=== PATIENT | male | born 1960 | race African-American/Black ===

== ENCOUNTER 2019-04-27 16:28 | Inpatient (IN) ==
[2019-04-27] MEDS ORDERED: ONDANSETRON 4 MG/2 ML VIAL IV STA (16:53)
[2019-04-27] MEDS ORDERED: MORPHINE 4 MG/1 ML VIAL IV STA (16:53)
[2019-04-27] MEDS ORDERED: ceFAZolin 1,000 MG VIAL IM ONE (16:53)
[2019-04-27] MEDS ORDERED: TETANUS IMMUNE GLOBULIN 250 UNIT SYRINGE IM STA (16:53)
[2019-04-27] MEDS ORDERED: NEOMYCIN/POLYMYXIN/BACITRACIN OINT 28.4 GM TUBE TOP STA (16:59)
[2019-04-27 17:55] LABS: Basophils # 0.1 10*3/uL (0.0-0.2); Basophils % 0.3 % (0.0-0.8); Eosinophils # 0.1 10*3/uL (0.0-0.87); Eosinophils % 0.5 % (0.00-10.9); Hemoglobin 14.4 GM/DL (14.0-18.0); Immature Granulocytes % 0.6 %; Immature Granulocytes Absolute 0.12 #; Lymphocytes # 1.5 10*3/uL (1.4-4.0); Lymphocytes % 7.6 % (21.2-54.2); Mean Corpuscular HGB Conc 32.7 GM/DL (32-36); Mean Corpuscular Volume 87.6 FL (87-102); Mean Platelet Volume 11.3 FL (9.6-12.0); Monocytes % 6.6 % (1.7-12.7); Neutrophils % 84.4 % (38.7-73.9); Platelet Count 222 T/CUMM (130-400); Red Blood Count 5.02 MC/CUMM (3.8-5.5); White Blood Count 19.7 T/CUMM (4-12)
[2019-04-27 18:04] LABS: Partial Thromboplastin Time 22.2 SECS (20.8-36.0)
[2019-04-27 18:17] LABS: Alanine Aminotransferase 84 U/L (16-61); Albumin 3.1 G/DL (3.4-5.0); Alkaline Phosphatase 86 U/L (45-117); Aspartate Amino Transferase 117 U/L (0-37); Bilirubin,Total < 0.39 MG/DL (0.2-1.0); Blood Urea Nitrogen 10 MG/DL (7-18); Calcium 7.7 MG/DL (8.5-10.1); Estimated Glom Filtration Rate 116 ML/MIN; Glucose 333 MG/DL (74-106); Osmolality,Calculated 277.4 MOS/KG (273-304)
[2019-04-27 18:18] LABS: Troponin I 0.082 NG/ML (0.00-0.045)
[2019-04-27] MEDS ORDERED: SODIUM CHLORIDE 0.9% 1,000 ML IV STA (18:38)
[2019-04-27] MEDS ORDERED: INSULIN REGULAR 100 UNIT/ML IV STA (18:39)
[2019-04-27 18:42] LABS: Apearance,Urine CLEAR (Clear); Bacteria,Urine Occasional /HPF (Few); Bilirubin,Urine Negative (Negative); Blood, Urine Negative (Negative); Glucose,Urine (UA) >=500 mg/dL (Negative); Ketones,Urine 20 mg/dL (Negative); Mucus,Urine Occasional /LPF (Occasional); Nitrite,Urine Negative (Negative); Protein,Urine 30 MG/DL; RBC,Urine 1 /HPF (0-4); Squamous Epithelial Cell,Urine Occasional /HPF (0-10); Urine Color Yellow (Yellow); Urine Specific Gravity 1.036 (1.001-1.035); Urine Urobilinogen < 2.0 EU/DL (0.2-1.0); WBC,Urine 4 /HPF (0-6)
[2019-04-27] MEDS ORDERED: LIDOCAINE 2% 20 ML VIAL ONE (18:46)
[2019-04-27 19:02] LABS: Barbiturates Screen,Urine Negative (Negative); Benzodiazepines Screen,Urine Negative (Negative); Cannabinoid Screen,Urine Positive (Negative); Opiate Screen,Urine Negative (Negative); Phencyclidine Screen,Urine Negative (Negative)
[2019-04-27] MEDS ORDERED: METOPROLOL TARTRATE 5 MG/5 ML VIAL IV PRN (19:15)
[2019-04-27] MEDS ORDERED: SODIUM CHLORIDE 0.9% 100 ML IV ONE (19:21)
[2019-04-27] MEDS ORDERED: ALBUTEROL 2.5 MG/3 ML NEB RESP TX PRN (20:19)
[2019-04-27] MEDS: SODIUM CHLORIDE 0.9% 1,000 ML IV SCH (21:24)
[2019-04-27 21:31] LABS: Hemoglobin 14.4 GM/DL (14.0-18.0)
[2019-04-27] MEDS ORDERED: ONDANSETRON 4 MG/2 ML VIAL IV PRN (22:43)
[2019-04-27] MEDS ORDERED: PROMETHAZINE 25 MG/1 ML VIAL IM PRN (22:43)
[2019-04-27] MEDS ORDERED: ACETAMINOPHEN 325 MG TABLET PO PRN (22:43)
[2019-04-27] MEDS: LACTATED RINGERS 1,000 ML IV SCH (22:55)
[2019-04-27] MEDS: hydrALAZINE 20 MG/1 ML VIAL IV PRN (23:15)
[2019-04-28] MEDS: SODIUM CHLORIDE 0.9% 1,000 ML IV SCH ×3 (05:13→13:49)
[2019-04-28] MEDS: hydrALAZINE 20 MG/1 ML VIAL IV PRN (05:17)
[2019-04-28 05:58] LABS: Basophils % 0.1 % (0.0-0.8); Hematocrit 48.6 VOL% (42.0-52.0); Hemoglobin 15.6 GM/DL (14.0-18.0); Immature Granulocytes % 0.5 %; Immature Granulocytes Absolute 0.08 #; Lymphocytes % 5.7 % (21.2-54.2); Mean Corpuscular HGB Conc 32.1 GM/DL (32-36); Mean Corpuscular Volume 88.8 FL (87-102); Mean Platelet Volume 11.5 FL (9.6-12.0); Monocytes % 5.1 % (1.7-12.7); Neutrophils % 88.6 % (38.7-73.9); Platelet Count 199 T/CUMM (130-400); Red Blood Count 5.47 MC/CUMM (3.8-5.5); White Blood Count 16.7 T/CUMM (4-12)
[2019-04-28] MEDS: HYDROmorphone 2 MG/1 ML VIAL IV PRN ×3 (06:00→19:46)
[2019-04-28 06:12] LABS: Bilirubin,Total 0.7 MG/DL (0.2-1.0); Calcium 8.6 MG/DL (8.5-10.1); Osmolality,Calculated 270.8 MOS/KG (273-304); Total Protein 7.6 G/DL (6.4-8.3)
[2019-04-28 06:37] LABS: Hematocrit 46.4 VOL% (42.0-52.0); Hemoglobin 15.3 GM/DL (14.0-18.0)
[2019-04-28] MEDS ORDERED: hydrALAZINE 20 MG/1 ML VIAL IV PRN ×2 (06:41→14:27)
[2019-04-28] MEDS: INSULIN LISPRO 100 UNIT/ML SUBCUT SCH ×4 (07:20→20:54)
[2019-04-28] MEDS: LACTATED RINGERS 1,000 ML IV SCH (07:21)
[2019-04-28] MEDS: PANTOPRAZOLE 40 MG TABLET PO SCH (09:05)
[2019-04-28] MEDS ORDERED: METOPROLOL TARTRATE 5 MG/5 ML VIAL IV ONE (11:15)
[2019-04-28] MEDS ORDERED: GLUCAGON 1 MG VIAL IM PRN (11:18)
[2019-04-28] MEDS ORDERED: DEXTROSE 50% 25 GM/50 ML VIAL IV PRN (11:18)
[2019-04-28] MEDS: LISINOPRIL 20 MG TABLET PO SCH (12:35)
[2019-04-28] MEDS: hydroCHLOROthiazide 25 MG TABLET PO SCH (12:35)
[2019-04-28 14:45] LABS: Hematocrit 45.9 VOL% (42.0-52.0); Hemoglobin 15.2 GM/DL (14.0-18.0)
[2019-04-28] MEDS: METOPROLOL TARTRATE 25 MG TABLET PO SCH (20:55)
[2019-04-28] MEDS ORDERED: INSULIN GLARGINE 100 UNIT/ML SUBCUT SCH (21:00)
[2019-04-29] MEDS: SODIUM CHLORIDE 0.9% 1,000 ML IV SCH ×2 (00:09→11:22)
[2019-04-29 05:34] LABS: Basophils % 0.2 % (0.0-0.8); Eosinophils % 0.3 % (0.00-10.9); Hematocrit 45.5 VOL% (42.0-52.0); Hemoglobin 15.3 GM/DL (14.0-18.0); Immature Granulocytes % 0.4 %; Immature Granulocytes Absolute 0.06 #; Lymphocytes # 1.8 10*3/uL (1.4-4.0); Mean Corpuscular HGB Conc 33.6 GM/DL (32-36); Mean Corpuscular Volume 85.4 FL (87-102); Mean Platelet Volume 11.8 FL (9.6-12.0); Monocytes % 8.4 % (1.7-12.7); Neutrophils % 78.7 % (38.7-73.9); Platelet Count 241 T/CUMM (130-400); Red Blood Count 5.33 MC/CUMM (3.8-5.5); Red Cell Distribution Width 14.3 % (9.3-17.3)
[2019-04-29 06:05] LABS: Calcium 8.2 MG/DL (8.5-10.1)
[2019-04-29] MEDS: HYDROmorphone 2 MG/1 ML VIAL IV PRN (07:36)
[2019-04-29] MEDS: INSULIN LISPRO 100 UNIT/ML SUBCUT SCH (07:39)
[2019-04-29 07:50] VITALS: BP 130/75
[2019-04-29] MEDS: PANTOPRAZOLE 40 MG TABLET PO SCH (08:58)
[2019-04-29] MEDS: hydroCHLOROthiazide 25 MG TABLET PO SCH (08:58)
[2019-04-29] MEDS: METOPROLOL TARTRATE 25 MG TABLET PO SCH (08:58)
[2019-04-29] MEDS: LISINOPRIL 20 MG TABLET PO SCH (08:59)
[2019-04-29] MEDS ORDERED: POTASSIUM CHLORIDE 20 MEQ/15 ML UDCUP PO PRN (09:05)
[2019-04-29] MEDS ORDERED: POTASSIUM CHLORIDE 20 MEQ TABLET PO ONE (10:30)
== END 2019-04-29 11:37 | disposition home or self-care (01) | DRG 644 ==
LOC: N.ED 16:28 → N.EDINP 19:38 → SUATTDRO 19:38 → N.ICU 20:03 → N.2E 04-28 13:48
PROVIDERS: ADMIT Surgery; ATTEND Internal Medicine